=== PATIENT | female | born 1970 | race Hispanic/Latino ===

== ENCOUNTER 2017-03-30 18:51 | Emergency (ER) | payer OTHER ==
--- NOTE | 2017-03-30 22:55 | Emergency Department Report ---
HPI - General Chief Complaint: Fall Time Seen by Provider: 03/30/17 22:36 - HPI HPI: Patient is a 47-year-old female presents to ED C mesh; nose without days ago when she fell in on her butt. Patient states she has had some pain but then her ankle right the past 2 days. Patient states right ankle is throbbing, aching in nature. Patient also states her products aches and throbs. She denies loss of consciousness or any head trauma. She denies fever chills as nausea/vomiting/abdominal pain/chest pain/headache or dizziness ED Past Medical Hx - Past Medical History Previous Medical History?: Yes Hx Kidney Stones: Yes - Surgical History Past Surgical History?: No - Social History Smoking Status: Never Smoker Substance Use Type: Alcohol - Medications Home Medications: Home Medications Medication Instructions Recorded Confirmed Last Taken Type Cyclobenzaprine [Flexeril 10 MG 10 mg PO QHS #24 tablet 03/30/17 Unknown Rx TAB] Diclofenac Dr [Voltaren Dr] 75 mg PO BID #30 tablet 03/30/17 Unknown Rx ED Review of Systems ROS: Stated complaint: NECK, KNEE AND BACK PAIN/ PT HAS A FALL Other details as noted in HPI Constitutional: denies: chills, fever Eyes: denies: eye pain, eye discharge, vision change ENT: denies: ear pain, throat pain Respiratory: denies: cough, shortness of breath, wheezing Cardiovascular: denies: chest pain, palpitations Endocrine: no symptoms reported Gastrointestinal: denies: abdominal pain, nausea, vomiting, diarrhea, constipation Genitourinary: denies: urgency, dysuria, frequency, discharge, abnormal menses Musculoskeletal: denies: back pain, joint swelling, arthralgia, myalgia Skin: denies: rash, lesions, pruritus Neurological: denies: headache, weakness, numbness, paresthesias, confusion, abnormal gait Psychiatric: denies: anxiety, depression Hematological/Lymphatic: denies: easy bleeding, easy bruising Physical Exam - Physical Exam Vital Signs: Vital Signs 03/30/17 18:58 Temperature 98.6 F Pulse Rate 94 H Respiratory 16 Rate Blood Pressure 152/97 O2 Sat by Pulse 99 Oximetry Physical Exam: GENERAL: Alert and oriented x3, no apparent distress, Normal Gait, atraumatic. HEAD: Head is normocephalic and a-traumatic. EYES: Extra ocular muscles are intact. Pupils are equal, round, and reactive to light and accommodation. NECK: Supple. Non edematous, No lymphadenopathy or thyromegaly. No C-spine tenderness. Full range of motion movement LUNGS: Symetrical with respiration, No wheezing, no rales or crackles, CTAB. HEART: S1, S2 present, regular rate and rhythm without murmur, no rubs, no gallops. Non tender to palpation BACK: Full range of motion, no spinal tenderness, nontender to palpation. No spinal tenderness, no tailbone tenderness EXTREMITIES/MUSCULOSKELETAL: No cyanosis, clubbing, rash, lesions or edema. Full ROM bilaterally. UE/LE Pulses 2+ bilaterally. LE and UE 5+ strength bilaterally, all joints are intact bilaterally. Ankle joints are intact no swelling no bleeding nontender to palpation NEUROLOGIC: The patient is cooperative with no focal neurologic deficits. Cranial nerves II through XII are grossly intact. Normal speech. Normal sensation in bilateral upper and lower extremities, No loss of sensation, SKIN: Warm and dry, No lesions, No ulceration or induration present. ED Course Vital Signs 03/30/17 18:58 Temperature 98.6 F Pulse Rate 94 H Respiratory 16 Rate Blood Pressure 152/97 O2 Sat by Pulse 99 Oximetry ED Medical Decision Making - Medical Decision Making 47-year-old female presents to myalgia secondary to fall ED course: Patient received Flexeril and Toradol in the ED. Discussed patient to apply warm compresses to muscle gross. Discussed with patient follow-up with primary care physician. Discussed the patient and take medications as prescribed. Patient has no neurological deficit. Patient is alert and oriented 3 and understands all instructions given. Discussed drowsiness effect of Flexeril makes her drowsy and not to operate machinery while taking flexeril Critical care attestation.: If time is entered above; I have spent that time in minutes in the direct care of this critically ill patient, excluding procedure time. ED Disposition Clinical Impression: Myalgia Fall Qualifiers: Encounter type: initial encounter Qualified Code(s): W19.XXXA - Unspecified fall, initial encounter Disposition: TO HOME OR SELFCARE Is pt being admited?: No Does the pt Need Aspirin: No Condition: Stable Instructions: Trigger Point Pain (ED), Musculoskeletal Pain (ED), Heat Pack Application (ED) Prescriptions: Cyclobenzaprine [Flexeril 10 MG TAB] 10 mg PO QHS #24 tablet Diclofenac [Sandro Millan] 75 mg PO BID #30 tablet Referrals: PRIMARY CARE, [Primary Care Provider] - 3-5 Days ISAAC LOPEZ MD [Referring] - 3-5 Days [facility] [Outside] - 3-5 Days [facility] [Outside] - 3-5 Days [facility] [Outside] - 3-5 Days Forms: Accompanied Note, Work/School Release Form(ED) Time of Disposition: 23:42
[2017-03-30] MEDS ORDERED: FLEXERIL PO ONE (23:06)
[2017-03-30] MEDS ORDERED: TORADOL IM ONE (23:06)
[2017-03-30] MEDS ORDERED: TORADOL ONE (23:17)
[2017-03-30 23:53] VITALS: BP 112/65
== END 2017-03-30 23:53 | disposition home or self-care (01) ==
LOC: ED 18:51
DX: M79.1 Myalgia (principal); W19.XXXA Unspecified fall, initial encounter; Y93.9 Activity, unspecified; Y92.9 Unspecified place or not applicable; Y99.9 Unspecified external cause status
CPT/HCPCS: 96372; 99282; J1885